=== PATIENT | female | born 1985 | race Caucasian/White ===

== ENCOUNTER → 2016-11-05 | Outpatient (CLI) | payer OTHER ==
--- NOTE | 2016-11-05 10:03 | RADIOLOGY REPORT (SQ) ---
EXAM DESCRIPTION: HIP LEFT AP/LATERAL COMPLETED DATE/TIME: 11/05/2016 9:45 am REASON FOR STUDY: PAIN IN LEFT HIP COMPARISON: None. NUMBER OF VIEWS: Two views. TECHNIQUE: AP pelvis and additional frog-leg view of the left hip. LIMITATIONS: None. FINDINGS: MINERALIZATION: Normal. LEFT HIP: No fracture or dislocation. No worrisome bone lesions. Tiny os acetabula. RIGHT HIP: No fracture or dislocation. No worrisome bone lesions. Tiny os acetabula. PUBIS AND ISCHIUM: No fracture. PELVIS: No fracture. SACRUM: No fracture or dislocation. No worrisome bone lesions. LOWER LUMBAR SPINE: No fracture or dislocation. No worrisome bone lesions. No significant disc disea se. SOFT TISSUES: No findings. OTHER: No other significant finding. IMPRESSION: NO RADIOGRAPHIC EVIDENCE OF ACUTE INJURY. TECHNICAL DOCUMENTATION: JOB ID: [id number] [employer]- All Rights Reserved
== END ==
LOC: OD 09:27
PROVIDERS: ATTEND Nurse Practitioner
DX: M25.552 Pain in left hip (principal)

== ENCOUNTER → 2016-12-01 | Day surgery (SDC) | payer OTHER ==
--- NOTE | 2016-12-01 16:58 | RADIOLOGY REPORT (SQ) ---
EXAM DESCRIPTION: MRI LT LOWER JOINT WITH COMPLETED DATE/TIME: 12/01/2016 3:36 pm REASON FOR STUDY: OTHER SPECIFIED JOINT DISORDERS, L HIP M25.852 OTHER SPECIFIED JOINT DISORDERS, L EFT HIP COMPARISON: Plain radiograph, CT scan 2009. TECHNIQUE: Post arthrogram imaging is performed using T1 and T1 and T2 fat saturated sequences of th e pelvis and specific hip of interest. LIMITATIONS: None. FINDINGS: JOINT DISTENSION: Adequate. No loose body. BONE MARROW: There is a benign lesion in the medial left iliac wing containing fat and fluid unchange d since 2009. FEMORAL HEAD, NECK, AND ACETABULUM: No occult fracture. No osteophytes or subchondral cysts. Normal s phericity of femoral head/neck junction. No acetabular dysplasia. No evidence of femoroacetabular imp ingement. PUBIC RAMI AND ISCHIUM: No occult fracture. SACRUM AND JE: SI joints normal in signal. No occult fracture. EFFUSIONS: None. LABRUM AND CARTILAGE: No labral tear. Cartilage of normal thickness without delamination. MUSCLES AND SOFT TISSUES: Adductors and piriformis normal. Abductors and greater trochanteric bursa n ormal without edema or fluid. Iliopsoas bursa without fluid. Hamstring attachments without edema or t ear. PELVIC SOFT TISSUES: No masses or adenopathy. SCIATIC NERVE: Identified without masses. OTHER: No other significant finding. IMPRESSION: NORMAL MRI ARTHROGRAM OF THE HIP. TECHNICAL DOCUMENTATION: JOB ID: [id number] [employer]- All Rights Reserved
--- NOTE | 2016-12-01 17:20 | RADIOLOGY REPORT (SQ) ---
EXAM DESCRIPTION: ARTHRO HIP INJ W/ANESTHESIA; FLUORO/NEEDLE PLACEMENT COMPLETED DATE/TIME: 12/01/2016 2:42 pm REASON FOR STUDY: OTHER SPECIFIED JOINT DISORDERS, L HIP M25.852 OTHER SPECIFIED JOINT DISORDERS, L EFT HIP COMPARISON: Left hip plain films 11/05/2016 FLUOROSCOPY TIME: 0.8 minutes 1 9 digital radiographic image saved to PACS. LIMITATIONS: None. PROCEDURE: Procedure, risks, benefits and alternatives explained to patient who then gave written c onsent. The left hip was marked and a time-out was called for correct marking verification. Entry s ite marked using fluoroscopic guidance. Hip prepped and draped using sterile technique. Local anes thesia achieved using 9 mL of 1% lidocaine injection. 22 gauge spinal needle introduced into the cony nt space under direct fluoroscopic visualization. Non-ionic contrast instilled to confirm intra-belen cular position. Dilute gadolinium solution then injected. Needle removed and entry site covered wi th sterile bandage. No immediate complications noted. TECHNIQUE: Digital images acquired during fluoroscopy and stored on PACS. Patient immediately take n to the MR suite for additional imaging. INJECTION LOCATION: Left hip CONTRAST TYPE AND AMOUNT: 1 mL Isovue-300 injected to confirm intra-articular needle placement follow ed by 7 mL of dilute gadolinium for MR arthrogram IMPRESSION: SUCCESSFUL NEEDLE PLACEMENT AND INJECTION FOR LEFT HIP MR ARTHROGRAM. COMMENT: Quality ID [id number]: Final reports for procedures using fluoroscopy that document radiation exp osure indices, or exposure time and number of fluorographic images (if radiation exposure indices are not available) TECHNICAL DOCUMENTATION: JOB ID: [id number] [employer]- All Rights Reserved
== END ==
LOC: RAD 13:28 → EDSTATUS 14:00
PROVIDERS: ATTEND Nuclear Medicine
PROC: BQ01ZZZ Plain Radiography of Left Hip (ICD-10-PCS; principal; 2016-12-01)
DX: M25.852 Other specified joint disorders, left hip (principal)
CPT/HCPCS: 73722; 77002; 27095; A9576

== ENCOUNTER 2017-05-12 09:03 | Emergency (ER) | payer OTHER ==
[2017-05-12] MEDS ORDERED: ACETAMINOPHEN WITH CODEINE 120-12 MG/5 ML UDCUP PO ONE (10:43)
--- NOTE | 2017-05-12 11:13 | RADIOLOGY REPORT (SQ) ---
EXAM DESCRIPTION: CHEST PA/LAT COMPLETED DATE/TIME: 05/12/2017 11:03 am REASON FOR STUDY: cough, congestion 2 weeks COMPARISON: None. EXAM PARAMETERS: NUMBER OF VIEWS: two views TECHNIQUE: Digital Frontal and Lateral radiographic views of the chest acquired. RADIATION DOSE: NA LIMITATIONS: none FINDINGS: LUNGS AND PLEURA: No opacities, masses or pneumothorax. No pleural effusion. MEDIASTINUM AND HILAR STRUCTURES: No masses or contour abnormalities. HEART AND VASCULAR STRUCTURES: Heart normal size. No evidence for failure. BONES: No acute findings. HARDWARE: None in the chest. OTHER: No other significant finding. IMPRESSION: NO SIGNIFICANT RADIOGRAPHIC FINDING IN THE CHEST. TECHNICAL DOCUMENTATION: JOB ID: [id number] [employer]- All Rights Reserved
[2017-05-12 11:46] LABS: A TYPE INFLUENZA AG POSITIVE (NEGATIVE); B INFLUENZA AG NEGATIVE (NEGATIVE)
--- NOTE | 2017-05-12 12:24 | ER Document Report ---
ED Flu Like - General Chief Complaint: Flu Symptoms Stated Complaint: COUGH,BODY ACHES Time Seen by Provider: 05/12/17 09:50 Mode of Arrival: Ambulatory Information source: Patient Notes: Patient is a 32-year-old female who presents to the ER today for 2 weeks of cough and 3 days of chills, body aches and fever. Patient states that both of her kids in the house have been sick with the flu and she is concerned that she may have the flu. She denies any vomiting, diarrhea, shortness of breath, chest pain, wheezing. TRAVEL OUTSIDE OF THE [place] IN LAST 30 DAYS: No - Related Data Allergies/Adverse Reactions: No Known Allergies Allergy (Verified 06/16/11 23:53) Past Medical History - General Information source: Patient - Social History Smoking Status: Unknown if Ever Smoked Family History: Reviewed & Not Pertinent Patient has suicidal ideation: No Patient has homicidal ideation: No Renal/ Medical History: Denies: Hx Peritoneal Dialysis - Immunizations Hx Diphtheria, Pertussis, Tetanus Vaccination: Yes - unknown Review of Systems - Review of Systems Constitutional: See HPI EENT: See HPI Cardiovascular: No symptoms reported Respiratory: See HPI Gastrointestinal: No symptoms reported Genitourinary: No symptoms reported Female Genitourinary: No symptoms reported Musculoskeletal: No symptoms reported Skin: No symptoms reported Hematologic/Lymphatic: No symptoms reported Neurological/Psychological: No symptoms reported Physical Exam - Vital signs Vitals: Temp Pulse Resp BP Pulse Ox 100.6 F H 128 H 18 111/65 99 05/12/17 09:28 05/12/17 09:28 05/12/17 09:28 05/12/17 09:28 05/12/17 09:28 - Notes Notes: PHYSICAL EXAMINATION: GENERAL: Mildly ill-appearing, but in no acute distress. HEAD: Atraumatic, normocephalic. EYES: Pupils equal round and reactive to light, extraocular movements intact, sclera anicteric, conjunctiva are normal. ENT: ear canals without erythema or foreign body, TMs pearly ponce with good bony landmarks, nares with clear discharge, oropharynx clear without exudates. Moist mucous membranes. NECK: Normal range of motion, supple without lymphadenopathy LUNGS: Cough, otherwise CTAB and equal. No wheezes rales or rhonchi. HEART: Regular rate and rhythm without murmurs ABDOMEN: Soft, no tenderness. No guarding, no rebound BACK: no vertebral tenderness, normal ROM GI/: no CVA tenderness EXTREMITIES: Normal range of motion, no pitting edema. No cyanosis. NEUROLOGICAL: Cranial nerves grossly intact. Normal sensory/motor exams. PSYCH: Normal mood, normal affect. SKIN: Warm, Dry, normal turgor, no rashes or lesions noted Course - Re-evaluation Re-evalutation: 05/12/17 12:23 Patient positive for influenza A. She is outside of the window to start Tamiflu , I will send her home with symptomatic treatment. Her fever did come down here with Tylenol. - Vital Signs Vital signs: Temp Pulse Resp BP Pulse Ox 99.0 F 155 H 16 105/57 L 92 05/12/17 12:47 05/12/17 12:47 05/12/17 12:47 05/12/17 12:47 05/12/17 12:47 Discharge - Discharge Clinical Impression: Influenza A Condition: Stable Disposition: HOME, SELF-CARE Additional Instructions: Return immediately for any new or worsening symptoms. Follow up with primary care provider, call tomorrow to make followup appointment. Drink plenty of fluids and get rest. Prescriptions: Acetaminophen with Codeine [Tylenol with Codeine 120 mg-12 mg/5 ml] 5 ml PO Q4HP PRN #120 ml PRN Reason: Forms: Return to Work Referrals: RYLAN RUIZ NP-C [Primary Care Provider] - Follow up as needed
[2017-05-12 12:54] VITALS: BP 105/57
== END 2017-05-12 12:54 | disposition home or self-care (01) ==
LOC: ER 09:03
DX: J10.1 Influenza due to other identified influenza virus with other respiratory manifestations (principal); R05 Cough; M79.1 Myalgia; R50.9 Fever, unspecified
CPT/HCPCS: 99284; 87804; 71046; J3490

== ENCOUNTER 2017-09-29 13:56 | Emergency (ER) | payer OTHER ==
[2017-09-29] MEDS ORDERED: KETOROLAC TROMETHAMINE INJ/PF 30 MG/1 ML SDV IM ONE (14:32)
--- NOTE | 2017-09-29 14:47 | ER Document Report ---
HPI - HPI Pain Level: 4 Notes: Patient is a 32-year-old female with no significant past medical history who presents to the ED complaining of left neck and shoulder pain as well as left mid back pain. Patient states that she has had soreness to her left sided neck 2 weeks after she believes she slept wrong. Patient states that she did have pain in the left mid back area 1 day, but it has improved since yesterday. Patient states that she has not had any injury to the area. She has been trying some conservative measures with minimal relief. She is eating and drinking without any difficulties. She is urinating normally and having normal bowel movements. She has not had any injections or procedures to her back. Denies any headache, fever, head injury, neck pain, URI, sore throat, chest pain , palpitations, syncope, cough, shortness of breath, wheeze, dyspnea, abdominal pain, nausea/vomiting/diarrhea, urinary retention, dysuria, hematuria, loss of control of bowel or bladder, numbness/tingling, saddle anesthesia, muscle paralysis/weakness, or rash. - ROS Systems Reviewed and Negative: Yes All other systems reviewed and negative - REPRODUCTIVE Reproductive: REPORTS: : Past Medical History - Social History Smoking Status: Never Smoker Family History: Reviewed & Not Pertinent Renal/ Medical History: Denies: Hx Peritoneal Dialysis - Immunizations Hx Diphtheria, Pertussis, Tetanus Vaccination: Yes - unknown Vertical Provider Document - CONSTITUTIONAL Agree With Documented VS: Yes Notes: PHYSICAL EXAMINATION: GENERAL: Well-appearing, well-nourished and in no acute distress. Neck: FROM. Strength 5+/5. No midline tenderness. Spurling negative. + mild tenderness to the left C-paraspinal mm and into the trap mm which correlates with the pain described. + mild spasm. N/V intact to UE's b/l. LUNGS: Breath sounds clear to auscultation bilaterally and equal. No wheezes rales or rhonchi. HEART: Regular rate and rhythm without murmurs, rubs, gallops. ABDOMEN: Soft, nontender, nondistended abdomen. No guarding, no rebound. No masses appreciated. Normal bowel sounds present. No CVA tenderness bilaterally. No pulsatile mass Musculoskeletal: LE's b/l: FROM to passive/active. Strength 5+/5. No deficits noted. No bony tenderness of extremities. Back: FROM to passive/active. Strength 5+/5. No vertebral point tenderness, stepoffs, or deformities. No other bony tenderness, erythema, swelling, or ecchymosis. SLR negative b/l. + mild tenderness to the left T-paraspinal mm. Mild spasming. No SI jt tenderness. No foot drop Extremities: No cyanosis, clubbing, or edema b/l. Peripheral pulses 2+. Capillary refill less than 2 seconds. NEUROLOGICAL: Normal speech, normal gait. Normal sensory, motor exams. Reflexes 2+ b/l. PSYCH: Normal mood, normal affect. SKIN: Warm, Dry, normal turgor, no rashes or lesions noted. - INFECTION CONTROL TRAVEL OUTSIDE OF THE [place] IN LAST 30 DAYS: No Course - Re-evaluation Re-evalutation: 09/29/17 14:44 Patient is an afebrile, well-hydrated, 32-year-old female who presents to the ED with left-sided neck pain and left thoracic back pain, suspect inflammatory with some muscle spasming associated. Vitals are acceptable. PE is otherwise unremarkable for any focal neurological deficits. Patient's concerns were reproducible on exam. No labs or imaging warranted at this time based on H&P. Toradol given IM today. Low suspicion for any meningitis, fracture, expanding/ ruptured AAA, cauda equina syndrome, epidural mass lesion/abscess, herniated disc causing severe spinal stenosis, or other systemic infection at this time. Patient is aware that this condition can change from initial presentation and that she needs monitor symptoms closely for any acute changes. I will send her home with a prescription for naproxen and baclofen. Conservative measures otherwise for symptoms. Recheck with your PCM in 3-5 days. Consider consult with orthopedic/physical therapy/chiropractic's. Return to the ED with any worsening/concerning symptoms otherwise as reviewed in discharge. Patient is in agreement. - Vital Signs Vital signs: Temp Pulse Resp BP Pulse Ox 98.5 F 104 H 18 116/67 99 09/29/17 14:10 09/29/17 14:10 09/29/17 14:10 09/29/17 14:10 09/29/17 14:10 Discharge - Discharge Clinical Impression: Cervicalgia, Left paraspinal back pain Condition: Stable Disposition: HOME, SELF-CARE Instructions: Stretching Exercises for the Back ([facility]), Muscle Relaxers ([facility]) Additional Instructions: Rest, Ice Tylenol/ibuprofen as needed Light stretches daily Strength exercises as able Moist heat and massage may help F/u with your PCP in 3-5 days for a recheck Consider consult(s) with Orthopedics/physical therapy/chiropractics for ongoing/ worsening symptoms Return to the ED with any worsening symptoms and/or development of fever, headache, chest pain, palpitations, syncope, shortness of breath, trouble breathing, abdominal pain, n/v/d, blood in stool/urine, loss of control of bowel /bladder, urinary retention, muscle weakness/paralysis, saddle anesthesia, numbness/tingling, or other worsening symptoms that are concerning to you. Prescriptions: Baclofen [Baclofen 10 mg Tablet] 5 - 10 mg PO BID PRN #10 tablet PRN Reason: Naproxen 500 mg PO BID PRN #30 tablet PRN Reason: Referrals: RYLAN RIUZ NP-C [Primary Care Provider] - Follow up in 3-5 days [facility] [Provider Group] - Follow up as needed
[2017-09-29 15:14] VITALS: BP 109/68
== END 2017-09-29 15:13 | disposition home or self-care (01) ==
LOC: ER 13:56
DX: M54.2 Cervicalgia (principal); M54.9 Dorsalgia, unspecified; M54.6 Pain in thoracic spine; M25.512 Pain in left shoulder
CPT/HCPCS: 99283; 96372; J1885

== ENCOUNTER → 2017-11-02 | Outpatient (CLI) | payer OTHER ==
--- NOTE | 2017-11-02 11:59 | RADIOLOGY REPORT (SQ) ---
EXAM DESCRIPTION: U/S ABDOMEN COMPLETE W/DOPPLER COMPLETED DATE/TIME: 11/02/2017 10:57 am REASON FOR STUDY: ABD PAIN (R10.9) R10.9 UNSPECIFIED ABDOMINAL PAIN COMPARISON: CT abdomen pelvis 05/07/2009, 05/06/2009 Abdominal ultrasound 05/06/2009 TECHNIQUE: Dynamic and static grayscale images acquired of the abdomen and recorded on PACS. Additio nal selected color Doppler and spectral images recorded. LIMITATIONS: Midline bowel gas FINDINGS: PANCREAS: Midline pancreas unremarkable LIVER: No masses. Echotexture normal. LIVER VASCULATURE: Normal directional flow of the main portal vein and hepatic veins. GALLBLADDER: No stones. Normal wall thickness. No pericholecystic fluid. ULTRASOUND-DETECTED SON'S SIGN: Negative. INTRAHEPATIC DUCTS AND COMMON DUCT: CBD and intrahepatic ducts normal caliber. No filling defects. INFERIOR VENA CAVA: Normal flow. AORTA: No aneurysm. RIGHT KIDNEY: Normal size. Normal echogenicity. No solid or suspicious masses. No hydronephros is. No calcifications. LEFT KIDNEY: Normal size. Normal echogenicity. No solid or suspicious masses. No hydronephrosi s. No calcifications. SPLEEN: Normal size. No solid masses. PERITONEAL AND PLEURAL SPACES: No ascites or effusions. OTHER: No other significant finding. IMPRESSION: NORMAL ABDOMINAL ULTRASOUND. TECHNICAL DOCUMENTATION: JOB ID: [id number]- All Rights Reserved Reading location - IP/workstation name: [email or web address]
== END ==
LOC: RAD 10:10
PROVIDERS: ATTEND Nurse Practitioner
DX: R10.9 Unspecified abdominal pain (principal)
CPT/HCPCS: 76700; 93976

== ENCOUNTER → 2018-01-06 | Outpatient (CLI) | payer OTHER ==
[2018-01-06 12:01] LABS: ALANINE AMINOTRANSFERASE 17 U/L (9-52); ALBUMIN 4.2 g/dL (3.5-5.0); ALKALINE PHOSPHATASE 50 U/L (38-126); ASPARTATE AMINO TRANSFERASE 19 U/L (14-36); BILIRUBIN,DIRECT 0.2 mg/dL (0.0-0.4); BILIRUBIN,TOTAL 0.6 mg/dL (0.2-1.3); TOTAL PROTEIN 6.5 g/dL (6.3-8.2); TRIGLYCERIDES 55 mg/dL (<150)
[2018-01-06 12:12] LABS: DIRECT LDL 63 mg/dL (<100)
== END ==
LOC: OD 10:45
PROVIDERS: ATTEND Internal Medicine Cardiovascular Disease
DX: Z79.899 Other long term (current) drug therapy (principal); E78.00 Pure hypercholesterolemia, unspecified
CPT/HCPCS: 36415; 80061; 80076

== ENCOUNTER → 2018-05-09 | Outpatient (CLI) | payer OTHER ==
[2018-05-09 11:23] LABS: ALANINE AMINOTRANSFERASE 22 U/L (9-52); ALBUMIN 4.5 g/dL (3.5-5.0); ALKALINE PHOSPHATASE 56 U/L (38-126); ANION GAP 10 (5-19); ASPARTATE AMINO TRANSFERASE 22 U/L (14-36); BILIRUBIN,DIRECT 0.2 mg/dL (0.0-0.4); BILIRUBIN,TOTAL 0.4 mg/dL (0.2-1.3); BLOOD UREA NITROGEN 11 mg/dL (7-20); CALCIUM 9.7 mg/dL (8.4-10.2); CARBON DIOXIDE 27 mmol/L (22-30); CHLORIDE 104 mmol/L (98-107); CHOLESTEROL 170.45 mg/dL (0-200); GLUCOSE 85 mg/dL (75-110); POTASSIUM 4.7 mmol/L (3.6-5.0); SODIUM 140.7 mmol/L (137-145); TRIGLYCERIDES 55 mg/dL (<150)
[2018-05-09 11:34] LABS: DIRECT LDL 104 mg/dL (<100)
== END ==
LOC: OD 09:58
PROVIDERS: ATTEND Internal Medicine Cardiovascular Disease
DX: E78.00 Pure hypercholesterolemia, unspecified (principal); R07.9 Chest pain, unspecified; Z79.899 Other long term (current) drug therapy
CPT/HCPCS: 36415; 80048; 80061; 80076

== ENCOUNTER 2020-02-15 19:12 | Emergency (ER) | payer OTHER ==
--- NOTE | 2020-02-15 20:05 | ER Document Report ---
ED Medical Screen (RME) - General Chief Complaint: Flank Pain Stated Complaint: ABDOMINAL PAIN,PELVIC PAIN Time Seen by Provider: 02/15/20 19:55 Primary Care Provider: GADIEL SON NP [Primary Care Provider] - Follow up as needed Mode of Arrival: Ambulatory Information source: Patient Notes: 34-year-old female presented to ED for bilateral flank pain much worse on the right than on the left. She states on January 04 she was seen and ordered antibiotics for UTI then she was called back and told not to take the antibiotics because she does not have a UTI. She states then she developed a yeast infection and she treated herself with [id number] medications. She states now the pain is so bad in her pelvic area that she went back to the primary they did self swab for GC chlamydia and STD checks as well as a urine and then because it was negative they decided to do a pelvic exam and order pelvic swabs for that but she did not get those swabs back yet. She states he also ordered a transvaginal ultrasound for Monday and told her that they will call do a pelvic scan at the same time. She states the pain is gotten so bad that she came to the emergency room to find out what is going on with her. States she does smoke a third a pack a day drinks monthly and her last menstrual period was more than a month ago. I have greeted and performed a rapid initial assessment of this patient. A comprehensive ED assessment and evaluation of the patient, analysis of test results and completion of medical decision making process will be conducted by an additional ED providers. TRAVEL OUTSIDE OF THE [place] IN LAST 30 DAYS: No - Related Data Allergies/Adverse Reactions: No Known Allergies Allergy (Verified 06/16/11 23:53) Home Medications: Doxycycline. Flagyl Past Medical History - Social History Chew tobacco use (# tins/day): No Frequency of alcohol use: None Drug Abuse: None Renal/ Medical History: Denies: Hx Peritoneal Dialysis - Immunizations Hx Diphtheria, Pertussis, Tetanus Vaccination: Yes - unknown Physical Exam - Vital signs Vitals: Temp Pulse Resp BP Pulse Ox 98.5 F 107 H 16 150/76 H 99 02/15/20 19:16 02/15/20 19:16 02/15/20 19:16 02/15/20 19:16 02/15/20 19:16 Course - Vital Signs Vital signs: Temp Pulse Resp BP Pulse Ox 98.5 F 107 H 16 150/76 H 99 02/15/20 19:16 02/15/20 19:16 02/15/20 19:16 02/15/20 19:16 02/15/20 19:16 Doctor's Discharge - Discharge Referrals: GADIEL SON, [employer]JUSTER [Primary Care Provider] - Follow up as needed
[2020-02-15 20:29] LABS: ABSOLUTE BASOPHILS # (AUTO) 0.1 10^3/uL (0.0-0.2); ABSOLUTE EOSINOPHILS # (AUTO) 0.1 10^3/uL (0.0-0.6); ABSOLUTE LYMPHOCYTES (AUTO) 3.3 10^3/uL (0.5-4.7); ABSOLUTE MONOCYTES (AUTO) 1.1 10^3/uL (0.1-1.4); BASOPHILS % (AUTO) 0.5 % (0-2); EOSINOPHILS % (AUTO) 1.1 % (0-6); HEMATOCRIT 42.2 % (36.0-47.0); HEMOGLOBIN 14.2 g/dL (12.0-15.5); LYMPHOCYTES % (AUTO) 28.8 % (13-45); MEAN CORPUSCULAR HEMOGLOBIN 31.2 pg (27.0-33.4); MEAN CORPUSCULAR HGB CONC 33.6 g/dL (32.0-36.0); MEAN CORPUSCULAR VOLUME 93 fl (80-97); MONOCYTES % (AUTO) 9.1 % (3-13); PLATELET COUNT 352 10^3/uL (150-450); RED BLOOD COUNT 4.56 10^6/uL (3.72-5.28); RED CELL DISTRIBUTION WIDTH 13.7 % (11.5-14.0); SEGMENTED NEUTROPHILS % (AUTO) 60.5 % (42-78); TOTAL CELLS COUNTED % (AUTO) 100 %; WHITE BLOOD COUNT 11.6 10^3/uL (4.0-10.5)
[2020-02-15 20:36] LABS: APPEARANCE,URINE CLEAR; BILIRUBIN,URINE NEGATIVE (NEGATIVE); COLOR,URINE YELLOW; GLUCOSE, URINE NEGATIVE (NEGATIVE); KETONES,URINE NEGATIVE (NEGATIVE); LEUKOCYTE ESTERASE,URINE TRACE (NEGATIVE); NITRITE,URINE NEGATIVE (NEGATIVE); PROTEIN,URINE NEGATIVE (NEGATIVE); URINE SPECIFIC GRAVITY 1.023; UROBILINOGEN,URINE NEGATIVE mg/dL (<2.0)
[2020-02-15 20:54] LABS: ALBUMIN 4.3 g/dL (3.5-5.0); ALKALINE PHOSPHATASE 55 U/L (38-126); ANION GAP 5 (5-19); ASPARTATE AMINO TRANSFERASE 23 U/L (14-36); BILIRUBIN,DIRECT 0.2 mg/dL (0.0-0.4); BILIRUBIN,TOTAL 0.3 mg/dL (0.2-1.3); BLOOD UREA NITROGEN 14 mg/dL (7-20); CALCIUM 9.9 mg/dL (8.4-10.2); CARBON DIOXIDE 30 mmol/L (22-30); CHLORIDE 102 mmol/L (98-107); GLUCOSE 94 mg/dL (75-110); POTASSIUM 4.3 mmol/L (3.6-5.0); TOTAL PROTEIN 7.1 g/dL (6.3-8.2)
--- NOTE | 2020-02-15 21:23 | RADIOLOGY REPORT (SQ) ---
EXAM DESCRIPTION: US PELVIS TRANSVAGINAL COMPLETED DATE/TME: 02/15/2020 20:47 CLINICAL HISTORY: 34 years, Female, Pelvic pain COMPARISON: None. TECHNIQUE: Endovaginal images of the pelvis were obtained. Myers scale imaging and Doppler imaging were performed. LIMITATIONS: None. FINDINGS: Uterus measures approximately 7.9 x 4.1 x 4.8 cm and appears within normal limits. Endometrium has a homogenous appearance and measures 7 mm in thickness. There is an incidental, 5 mm nabothian cyst within the cervix. The ovaries measure approximately 2.6 x 1.8 x 2.1 cm on the right and 3.6 x 1.7 x 3.1 cm on the left. No adnexal mass or free pelvic fluid. No evidence of ovarian torsion on Doppler. IMPRESSION: Examination is within normal limits as above. copyright 2010 [employer]- All Rights Reserved
--- NOTE | 2020-02-15 22:06 | RADIOLOGY REPORT (SQ) ---
EXAM DESCRIPTION: CT ABDOMEN PELVIS WITHOUT IV CONTRAST COMPLETED DATE/TME: 02/15/2020 21:21 CLINICAL HISTORY: 34 years, Female, Flank pain EXAM DESCRIPTION: CT ABD/PELVIS NO ORAL OR IV CLINICAL HISTORY: Flank pain COMPARISON: None Available TECHNIQUE: Contiguous axial images of the abdomen and pelvis were obtained after the administration of intravenous contrast followed by reconstruction images.This exam was performed according to our departmental dose-optimization program, which includes automated exposure control, adjustment of the mA and/or kV according to patient size and/or use of iterative reconstruction technique. FINDINGS: There is a small amount of gas in the urinary bladder. This could be due to recent catheterization. There is colonic diverticulosis. There is a nonspecific heterogeneous lesion of the right ilium adjacent to the right SI joint. It is generally lucent with multiple septations and there is thinning of the subjacent cortex. The liver, spleen, pancreas and kidneys are within normal limits. There is no hydronephrosis. The gallbladder is unremarkable. Adrenal glands are within normal limits. Aorta is normal in caliber and tapering. No significant free fluid. No free air. No bowel obstruction. There is no stranding of the mesenteric fat. The appendix appears normal. No evidence of periappendiceal inflammation. IMPRESSION: Small amount of gas in the urinary bladder, which could be due to recent catheterization. No acute intra-abdominal abnormality
--- NOTE | 2020-02-15 22:28 | ER Document Report ---
ED GI/ - General Chief Complaint: Flank Pain Stated Complaint: ABDOMINAL PAIN,PELVIC PAIN Time Seen by Provider: 02/15/20 19:55 Primary Care Provider: GADIEL SON NP [NO LOCAL MD] - Follow up as needed Mode of Arrival: Ambulatory Information source: Patient Notes: This 34-year-old woman presents to the emergency department with a history of dysuria and urgency which has been ongoing since December. She has been seen on 2 prior occasions at a local urgent care and given medications for treatment. She has been tested for UTI and also for STI, states that she was given a course of medications for possible STI and is in the process of completing the medi cations. She is 4 days into the medications and note that there is no improvement in her symptoms. She is scheduled for ultrasound on Monday. Because of the dysuria and urgency with discomfort and pain she is presenting to the emergency department for further evaluation and treatment. Patient denies allergies to medications. TRAVEL OUTSIDE OF THE [place] IN LAST 30 DAYS: No - Related Data Allergies/Adverse Reactions: No Known Allergies Allergy (Verified 06/16/11 23:53) Home Medications: Doxycycline. Flagyl Past Medical History - General Information source: Patient - Social History Smoking Status: Current Every Day Smoker Chew tobacco use (# tins/day): No Frequency of alcohol use: None Drug Abuse: None Family History: Reviewed & Not Pertinent Renal/ Medical History: Denies: Hx Peritoneal Dialysis - Immunizations Hx Diphtheria, Pertussis, Tetanus Vaccination: Yes - unknown Review of Systems - Review of Systems Notes: Constitutional: Negative for fever. HENT: Negative for sore throat. Eyes: Negative for visual changes. Cardiovascular: Negative for chest pain. Respiratory: Negative for shortness of breath. Gastrointestinal: Negative for abdominal pain, vomiting or diarrhea. Genitourinary: See HPI Musculoskeletal: Negative for back pain. Skin: Negative for rash. Neurological: Negative for headaches, weakness or numbness. 10 point ROS negative except as marked above and in HPI. Physical Exam - Vital signs Vitals: Temp Pulse Resp BP Pulse Ox 98.5 F 107 H 16 150/76 H 99 02/15/20 19:16 02/15/20 19:16 02/15/20 19:16 02/15/20 19:16 02/15/20 19:16 - Notes Notes: PHYSICAL EXAMINATION: Physical Exam: General: Well-nourished well-developed 34-year-old female in no acute distress HEENT: NC/AT, pupils equal round and reactive to light, MM moist,nares clear, oropharynx clear, airway patent Neck: supple, no adenopathy, no masses. Good range of motion Lungs: clear, no wheezing, no rales no rhonchi CVS: Regular rate and rhythm no murmur gallop or rub Abdomen: Soft, active, nontender, no masses, no hepatosplenomegaly Ext: No edema, clubbing or cyanosis. Neuro: Alert and responsive, moving all 4 extremities on command, cranial nerves intact, no focal findings Skin: Intact no open lesions, no rash Course - Re-evaluation Re-evalutation: 02/15/20 23:23 Patient apparently being treated with Flagyl and doxycycline for the past 4 days with no improvement she presents now with concerns a CT scan of the abdomen and pelvis along with ultrasound were performed today both test were interpreted as normal. I discussed with the patient the findings of the urinalysis and she is going to be covered with Bactrim and Pyridium. I have suggested that she request a urology referral from her primary care doctor given his has symptoms for the past 2 months. The patient and her significant other acknowledges understanding of this plan and will be following up with her primary next week. - Vital Signs Vital signs: Temp Pulse Resp BP Pulse Ox 98.5 F 107 H 16 150/76 H 99 02/15/20 19:16 02/15/20 19:16 02/15/20 19:16 02/15/20 19:16 02/15/20 19:16 - Laboratory Result Diagrams: 02/15/20 20:20 02/15/20 20:20 Laboratory results interpreted by me: 02/15/20 02/15/20 02/15/20 20:10 20:20 20:20 WBC 11.6 H Sodium 136.9 L Est GFR (MDRD) Non-Af 56 L Ur Leukocyte Esterase TRACE H - Diagnostic Test Radiology reviewed: Image reviewed, Reports reviewed Radiology results interpreted by me: 02/15/20 22:27 Abdomen/Pelvis CT 02/15/20 20:01 IMPRESSION: Small amount of gas in the urinary bladder, which could be due to recent catheterization. No acute intra-abdominal abnormality Transvaginal US 11/28/20 20:02 IMPRESSION: Examination is within normal limits as above. copyright 2010 [employer]- All Rights Reserved Discharge - Discharge Clinical Impression: Dysuria UTI (urinary tract infection) Qualifiers: Urinary tract infection type: site unspecified Hematuria presence: without hematuria Qualified Code(s): N39.0 - Urinary tract infection, site not specified Condition: Good Disposition: HOME, SELF-CARE Instructions: Trimethoprim-Sulfa ([facility]), Urinary Tract Infection ([facility]) Additional Instructions: Seen in the emergency department tonight with complaint of dysuria and symptoms suggestive of a urinary tract infection. CT scan and ultrasound were performed which are essentially negative test. A urine culture was performed and your primary doctor should follow-up on the results. If your symptoms are improving please complete the full course of medications. If you are noting no improvement I would suggest a referral for urology evaluation. HOME CARE INSTRUCTIONS & INFORMATION: Thank you for choosing us for your medical needs. We hope you're satisfied with the care you received. After you leave, you must properly care for your problem and, at the same time, observe its progress. Any condition can change. Some illnesses can change rapidly over hours or days. If your condition worsens, return to the Emergency Department or see your physician promptly. ABOUT YOUR X-RAYS AND EKG'S: If you had an EKG or X-rays taken, they have been read by the Emergency Physician. The X-rays and EKG's will also be read by a Radiologist or Special Programs Director within 24 hours. If discrepancies are noted, you will be notified by telephone. Please be certain the ED has a correct telephone number & address where you can be reached. Also, realize that some fractures or abnormalities do not show up on initial X-rays. If your symptoms continue, see your physician. ABOUT YOUR LABORATORY TEST: If you had laboratory tests, the results have been reviewed by the Emergency Physician. Some test results (for example cultures) may not be available for several days. You will be contacted if any test result shows you need additional treatment. Please be certain the ED has a correct telephone number and address where you can be reached. ABOUT YOUR MEDICATIONS: You will receive instructions on how to take your medicine on the prescription label you receive. Additional information may be provided by the Pharmacy. If you have questions afterwards, call the ED for clarification or further instructions. Some prescribed medications may cause drowsiness. Do not perform tasks such as driving a car or operating machinery without consulting your Pharmacist. If you feel you need a refill of pain medication, your condition will need re-evaluation. Please do not call for a refill of any medication. ABOUT YOUR SIGNATURE: Signature of this document acknowledges to followin. Understanding that you received emergency treatment and that you may be released before al medical problems are known or treated. Please be certain th e ED has a correct phone number & address where you can be reached. 2. Acknowledgement that you will arrange for follow-up care as recommended. 3. Authorization for the Emergency Physician to provide information to your follow-up Physician in order to maximize your care. AT ANY TIME, IF YOUR SYMPTOMS CHANGE SIGNIFICANTLY OR WORSEN OR YOU DEVELOP NEW SYMPTOMS, RETURN TO THE EMERGENCY DEPARTMENT IMMEDIATELY FOR RE-EVALUATION. OUR GOAL IS TO PROVIDE EXCELLENT MEDICAL CARE! WE HOPE THAT WE HAVE MET YOUR EXPECTATIONS DURING YOUR EMERGENCY DEPARTMENT VISIT AND THAT YOU FEEL YOU HAVE RECEIVED EXCELLENT CARE! Prescriptions: Sulfamethoxazole/Trimethoprim [Bactrim Ds Tablet] 1 tab PO BID #20 tablet Phenazopyridine HCl [Pyridium 100 Mg Tablet] 100 mg PO TID PRN #14 tablet PRN Reason: dysuria Referrals: GADIEL SON, SHAHRIAR [NO LOCAL MD] - Follow up as needed
[2020-02-15] MEDS ORDERED: SULFAMETHOXAZOLE/TRIMETHOPRIM 800-160 MG TABLET PO ONE (23:29)
[2020-02-15] MEDS ORDERED: PHENAZOPYRIDINE HCL 200 MG TABLET PO ONE (23:30)
[2020-02-16 00:31] VITALS: BP 130/83
== END 2020-02-15 23:55 | disposition home or self-care (01) ==
LOC: ER 19:12
DX: N39.0 Urinary tract infection, site not specified (principal); F17.200 Nicotine dependence, unspecified, uncomplicated
CPT/HCPCS: 99285; 36415; 87086; 83690; 84703; 85025; 87088; 80053; 81001; 87186; 76830; 93976; 74176; J3490